=== PATIENT | male | born 1975 | race Caucasian/White ===

== ENCOUNTER 2025-04-17 19:55 | Emergency (ER) | payer MEDICAID ==
[~2025-04-17] VITALS: Ht 170.2 cm; Wt 104.5 kg
[~2025-04-17 19:55] MED LIST: [UNRECOGNIZED DRUG - OTHER] PO
[2025-04-17 20:24] LABS: PLATELET COUNT (AUTO) 213 K/uL (150-450); RED BLOOD CELL COUNT(AUTO) 5.51 MIL/uL (4.50-5.90); RED CELL DISTRIBUTION WIDTH 13.3 % (11.5-14.5); WHITE BLOOD COUNT (AUTO) 7.5 K/uL (4.5-11.0)
[2025-04-17 20:30] LABS: CALCIUM, TOTAL 8.8 mg/dL (8.8-10.5); CREATININE 0.78 mg/dL (0.60-1.30); GLOMERULAR FILTR. RATE CALC > 60 mL/min (>60); GLUCOSE,RANDOM 97 mg/dL (70-110); SODIUM SERUM 140 mmol/L (136-145); UREA NITROGEN, BLOOD 16 mg/dL (7-18)
[2025-04-17 20:36] LABS: ASPARTATE AMINOTRANSFERASE 28.0 U/L (15-37); TOTAL PROTEIN, SERUM 7.9 g/dL (6.4-8.2)
[2025-04-17 21:39] VITALS: TEMP 98.405312
[2025-04-17 23:04] LABS: APPEARANCE,URINE CLEAR (CLEAR); GLUCOSE, URINE (UA) NEGATIVE (NEGATIVE); LEUKOCYTE ESTERASE ,URINE NEGATIVE (NEGATIVE); NITRATE,URINE NEGATIVE (NEGATIVE); OCCULT BLOOD,URINE NEGATIVE (NEGATIVE); SPECIFIC GRAVITIY, URINE 1.014 (1.003-1.030)
[2025-04-18] VITALS: BP 128/85; PULSE 72; RESP 16; O2SAT 95
[2025-04-18] MEDS: KETOROLAC TROMETHAMINE 30 MG/ML VIAL IM ONE (00:04)
== END 2025-04-18 00:10 | disposition home or self-care (01) ==
LOC: EMS 21:21
DX: R10.31 Right lower quadrant pain (principal); R10.A1 Flank pain, right side; R11.0 Nausea; Z79.899 Other long term (current) drug therapy
CPT/HCPCS: 99285; 74176; 80048; 80076; 81003; 85025; 36415; 96372; J1885